=== PATIENT | female | born 1960 | race Caucasian/White ===

== ENCOUNTER 2023-03-03 16:12 | Emergency (ER) | payer OTHER, BC, SELFPAY ==
[2023-03-03 16:21] VITALS: BP 136/78; RESP 18; TEMP 36.6; O2SAT 94; BMI 26.6
--- NOTE | 2023-03-03 16:40 | CRLHL7_ITS ---
For Patients: As a result of the Cures Act, medical imaging exams and procedure reports are released immediately into your electronic medical record. You may view this report before your referring provider. If you have questions, please contact your health care provider. Indication: FALL Technique: Left wrist 3 view Comparison: None Findings: Mild osteopenia. Alignment is normal. No fractures or bone lesions. No significant soft tissue swelling. Impression: No evidence of fracture. Dictated by Jalil Gonzalez MD @ 03/03/2023 5:48:39 PM (Electronically Signed)
--- NOTE | 2023-03-03 16:40 | CRLHL7_ITS ---
For Patients: As a result of the Cures Act, medical imaging exams and procedure reports are released immediately into your electronic medical record. You may view this report before your referring provider. If you have questions, please contact your health care provider. Indication: Injury and pain Technique: Left elbow 3 views Comparison: None Impression: Subtle lucency along the lateral aspect of the radial neck is favored to represent artifact versus less likely fracture. Recommend correlation and point tenderness. No evidence of elbow effusion. No significant soft tissue swelling. Dictated by Jalil Gonzalez MD @ 03/03/2023 5:44:44 PM (Electronically Signed)
--- NOTE | 2023-03-03 16:40 | CRLHL7_ITS ---
For Patients: As a result of the Cures Act, medical imaging exams and procedure reports are released immediately into your electronic medical record. You may view this report before your referring provider. If you have questions, please contact your health care provider. Indication: Trauma. Technique: Left shoulder, 3 views. Comparison: None. Findings: Bones: Alignment is normal. No fractures or bone lesions. Joint spaces: Mild degenerative changes at the AC and glenohumeral joints.. Soft tissues: Unremarkable. Impression: No sign of acute injury. Dictated by Ada Domínguez MD @ 03/03/2023 5:40:15 PM (Electronically Signed)
--- NOTE | 2023-03-03 16:41 | ED_ITS ---
HPI - Fall General Chief Complaint: Fall/Minor Trauma Stated Complaint: L arm injury Time Seen by Provider: 03/03/23 16:34 History of Present Illness HPI Narrative: This 62-year-old female comes in because of an injury to her left upper extremity. She was rollerblading and states that the brake and wheels of the front of 1 of the skates came off causing her to fall forward onto her right outstretched arm. She complains of pain in her left wrist, elbow, and shoulder. She states that she did not hit her head or have other injury. She was able to get up and ambulate. Related Data Previous Rx's Medication Instructions Recorded hydrocodone 5 mg-acetaminophen 325 1 tab PO Q4-6H PRN pain #10 tabs 03/03/23 mg tablet ketorolac 10 mg tablet 10 mg PO Q8H 5 days #15 tabs 03/03/23 Allergies Allergy/AdvReac Type Severity Reaction Status Date / Time amoxicillin Allergy Verified 03/03/23 16:20 Fish Containing Products Allergy Verified 03/03/23 16:20 Review of Systems Status of ROS: Reports: 10 or more systems reviewed and unremarkable except as noted in History and below Narrative: Constitutional: No fevers, no weight gain or loss. Eyes: No discharge. No vision changes. HENT: No congestion, no sore throat, no ear pain. Cardiovascular: No chest pain, no palpitations. Respiratory: No shortness of breath, no wheezes, no cough. Gastrointestinal: No abdominal pain, no vomiting, no diarrhea. Genitourinary: No dysuria, no hematuria. Musculoskeletal: Left upper extremity injury as described above. Skin: No rashes, no pruritis. Neurological: No dizziness, weakness, sensory change, speech change. Endo/Heme/Allergies: No bruising or bleeding. No polydipsia. Pysch: no suicidality, no anxiety, no insomnia. All other systems reviewed and are negative. PFSH PFSH Social History Smoking Status: Former smoker Do you use any of these nicotine containing products: None Second hand tobacco smoke exposure: No How often do you have a drink containing alcohol: monthly or less How many standard drinks containing alcohol do you have on a typical day: 1 or 2 How often do you have six or more drinks on one occasion: Never AUDIT-C Alcohol total score: 1 Non-prescribed substance use: denies use service: No Exam Narrative: Exam Narrative: Constitutional: Well-developed, well-nourished, no acute distress. HEENT: Normocephalic, atraumatic. Neck: Normal range of motion. Nontender. Supple. Heart: Regular. No murmurs. Normal rate. Intact distal pulses. Lungs: Clear to auscultation. No chest discomfort. No wheezes, rhonchi, or rales. Abdomen: Normal bowel sounds. Nontender. No rebound tenderness. Genitalia: Deferred. Back: No midline tenderness. Normal range of motion. Extremities: Diffuse tenderness in the joints of the left upper extremity including shoulder, elbow, and wrist. There is no point tenderness or sign of deformity. There is no skin injury Skin: Intact. No rash. Warm. No erythema or pallor. Neurologic: No altered sensation. No weakness. Alert and oriented. Psychiatric: No suicidality. No anxiety or depression. No insomnia. Nursing notes and vitals signs are reviewed. Const: Vital Signs, click to edit/add: Vital Signs - 24 hr 03/03/23 16:21 Temperature 98 F Respiratory Rate 18 Blood Pressure [Ri ght Upper Arm] 136/78 Pulse Oximetry 94 Oxygen Delivery Me thod Room Air Course Vital Signs Vital signs: Initial Vital Signs Temperature 98 F 03/03/23 16:21 Temperature Source Temporal Artery Scan 03/03/23 16:21 Respiratory Rate 18 03/03/23 16:21 Blood Pressure 136/78 03/03/23 16:21 Blood Pressure Mean 97 03/03/23 16:21 Blood Pressure Position Sitting 03/03/23 16:21 Pulse Oximetry 94 03/03/23 16:21 Oxygen Delivery Method Room Air 03/03/23 16:21 Vital Signs Temperature 98 F 03/03/23 16:21 Respiratory Rate 18 03/03/23 16:21 Blood Pressure 136/78 03/03/23 16:21 Pulse Oximetry 94 03/03/23 16:21 Oxygen Delivery Method Room Air 03/03/23 16:21 Temperature 98 F 03/03/23 16:21 Respiratory Rate 18 03/03/23 16:21 Blood Pressure 136/78 03/03/23 16:21 Pulse Oximetry 94 03/03/23 16:21 Oxygen Delivery Method Room Air 03/03/23 16:21 MDM - Fall MDM Narrative Medical decision making narrative: This patient comes in for evaluation of injuries to her left upper extremity from a fall that occurred this prior to arrival. X-ray imaging shows reassuring findings without evidence of fracture except the possibility of a subtle lucency at the neck of the proximal radius. There is no point tenderness or swelling in this particular area. This news was reassuring to the patient who is encouraged to increase activity as tolerated. She did receive a sling and prescription for some tablets of Toradol and [place]. Imaging Data XR L Elbow: Radiologist's impression: Subtle lucency along the lateral aspect of the radial neck is favored to represent artifact versus less likely fracture. Recommend correlation and point tenderness. No evidence of elbow effusion. No significant soft tissue swelling. XR L Shoulder: Radiologist's impression: No sign of acute injury. XR L Wrist: Radiologist's impression: No evidence of fracture. Discharge Plan Discharge Clinical Impression: Upper extremity injury Patient Disposition: Home, Self-Care Condition: Stable Additional Instructions: Wear sling and take medication as needed and directed. Increase activity as tolerated. Follow up with MD return if worsening. Prescriptions: New hydrocodone-acetaminophen 5-325 mg tablet 1 tab PO Q4-6H PRN (Reason: pain) Qty: 10 0RF ketorolac 10 mg tablet 10 mg PO Q8H 5 Days Qty: 15 0RF Follow Up/Referrals: Valerie Charles MD [Primary Care Provider] - Stand Alone Forms: [employer] Info Instructions
== END 2023-03-03 18:22 | disposition home or self-care (01) ==
PROVIDERS: Emergency Provider Emergency Medicine Emergency Medical Services; PCP Family Medicine
DX: S49.92XA Unspecified injury of left shoulder and upper arm, initial encounter (principal); W18.39XA Other fall on same level, initial encounter; Y93.51 Activity, roller skating (inline) and skateboarding
CPT/HCPCS: 73030; 73080; 73110; 99284